=== PATIENT | female | born 1945 | race Caucasian/White ===

== ENCOUNTER 2016-08-29 14:03 | Outpatient (CLI) | payer MEDICARE, OTHER ==
[2016-08-29 14:47] LABS: CREATININE 0.7 mg/dL (0.4-1.0)
[2016-08-29] MEDS ORDERED: IOPAMIDOL-300 50 ML VIAL PO ONE (16:31)
[2016-08-29] MEDS ORDERED: IOPAMIDOL-300 100 ML VIAL IVP ONE (16:31)
--- NOTE | 2016-09-01 07:23 | CT Report ---
EXAM: CT ABDOMEN AND PELVIS EXAM DATE: 08/29/2016 04:33 PM. CLINICAL HISTORY: Pulmonary lesion, history of gist tumor. COMPARISONS: 02/21/2016. TECHNIQUE: Routine helical CT imaging was performed through the abdomen and pelvis. IV contrast: Isov ue 300 100mL. Enteric contrast: Yes. Reconstructions: Coronal and sagittal. In accordance with CT protocol optimization, one or more of the following dose reduction techniques w ere utilized for this exam: automated exposure control, adjustment of mA and/or KV based on patient s ize, or use of iterative reconstructive technique. FINDINGS: Lung Bases: A tiny 1 x 4 mm linear scarlike density present about the lateral left base on image 8 an d is not significant changed. Fine linear scars present about the posterior lower lobes. Liver: Normal. No masses. Gallbladder/Bile Ducts: Within normal limits. Spleen: Normal in size. A splenule again noted. Pancreas: Normal. Adrenal Glands: Normal. Kidneys: Normal. No masses or hydronephrosis. Peritoneal Cavity/Bowel: Surgical material now present in the region of prior tumor mass about the an terior gastric fundal wall. No residual or recurrent tumor mass identified. The remainder of the kimber l loops are unremarkable. No free fluid, free air or inflammatory process is identified. Note that th e cecum extends into the left mid abdomen as before. Pelvic Organs: Normal. The bladder and visualized pelvic organs are within normal limits. Vasculature: No aneurysms or other significant abnormality. Bones: No significant abnormality. Other: None. IMPRESSION: 1. Small linear density lateral left base unchanged and may represent a small scar. It would be atypi coral in contour for a metastatic focus. 2. Gastric tumor mass no longer identified. No residual recurrent lesion identified. [facility] Referring Provider Line: [phone] SITE ID: [id number]
--- NOTE | 2016-09-01 16:10 | CT Report ---
EXAM: CT CHEST EXAM DATE: 08/29/2016 04:33 PM. CLINICAL HISTORY: PULMONARY LESION HX OF GIST TUMOR. COMPARISONS: CT abdomen/pelvis 08/29/2016, chest film 02/20/16. TECHNIQUE: Routine helical CT imaging was performed through the chest. IV contrast: None. Reconstructions: Coron al and sagittal. In accordance with CT protocol optimization, one or more of the following dose reduction techniques w ere utilized for this exam: automated exposure control, adjustment of mA and/or KV based on patient s ize, or use of iterative reconstructive technique. FINDINGS: Lungs/Pleura: Left lower lobe 1-2 mm nodule (3/47). No other nodules identified. No effusions. Mediastinum: Normal. No adenopathy or masses. The heart and great vessels are normal. Bones: Unremarkable. Visualized Abdomen: Postoperative changes in the stomach. Other: None. IMPRESSION: Left lower lobe 1-2 mm nodule. [facility] Referring Provider Line: [phone] SITE ID: [id number]
== END 2016-08-29 14:04 | disposition home or self-care (01) ==
LOC: LAB 14:03
PROVIDERS: ATTEND Surgery
DX: J98.4 Other disorders of lung (principal); R91.1 Solitary pulmonary nodule
CPT/HCPCS: 36415; 71260; 74177; 82565; Q9967

== ENCOUNTER 2016-11-21 13:29 | Outpatient (CLI) | payer MEDICARE, OTHER | END 2016-11-21 13:30 | disposition home or self-care (01) | DX: Z12.31 Encounter for screening mammogram for malignant neoplasm of breast (principal) ==

== ENCOUNTER 2017-01-14 09:29 | Outpatient (CLI) | payer MEDICARE, OTHER ==
[2017-01-14 18:24] LABS: BASOPHILS % (AUTO) 1.2 %; EOSINOPHILS # (AUTO) 0.2 10^3/uL (0.0-0.7); EOSINOPHILS % (AUTO) 5.6 %; HCT - HEMATOCRIT 41.1 % (37.0-47.0); HGB - HEMOGLOBIN 13.6 g/dL (12.0-16.0); LYMPHOCYTES # (AUTO) 1.5 10^3/uL (1.5-3.5); MEAN CORPUSCULAR HEMOGLOBIN 30.1 pg (27.0-31.0); MEAN CORPUSCULAR HGB CONC 33.2 g/dL (32.0-36.0); MEAN CORPUSCULAR VOLUME 90.8 fL (81.0-99.0); MEAN PLATELET VOLUME 9.5 fL (7.9-10.8); MONOCYTES # (AUTO) 0.4 10^3/uL (0.0-1.0); MONOCYTES % (AUTO) 9.4 %; NEUTROPHILS # (AUTO) 1.8 10^3/uL (1.5-6.6); NEUTROPHILS % (AUTO) 45.8 %; NUCLEATED RED BLOOD CELLS AUTO 0.2 /100WBC; RED BLOOD COUNT 4.52 10^6/uL (4.20-5.40); RED CELL DISTRIBUTION WIDTH 13.6 % (12.0-15.0)
[2017-01-14 18:46] LABS: ALBUMIN/GLOBULIN RATIO 1.4 (1.0-2.2); BILIRUBIN,TOTAL 0.7 mg/dL (0.2-1.0); BUN - BLOOD UREA NITROGEN 17 mg/dL (6-20); CALCIUM 8.9 mg/dL (8.5-10.3); CARBON DIOXIDE - CO2 29 mmol/L (21-32); CHLORIDE 106 mmol/L (101-111); CHOL/HDL RATIO 2.8 (<4.4); CHOLESTEROL 184 mg/dL; CREATININE 0.7 mg/dL (0.4-1.0); GFR - MDRD 82 (>89); GLUCOSE 73 mg/dL (70-100); HDL CHOLESTEROL 66 mg/dL; LDL/HDL RATIO 1.6 (<4.4); POTASSIUM 3.9 mmol/L (3.5-5.0); SODIUM 140 mmol/L (135-145); TOTAL PROTEIN 6.7 g/dL (6.7-8.2); TRIGLYCERIDES 57 mg/dL; VLDL CHOLESTEROL 11 mg/dL
== END 2017-01-14 09:30 | disposition home or self-care (01) ==
LOC: LAB.F 09:29
PROVIDERS: ATTEND Internal Medicine
DX: E78.2 Mixed hyperlipidemia (principal)
CPT/HCPCS: 36415; 80053; 80061; 84443; 85025

== ENCOUNTER 2017-02-27 10:25 | Outpatient (CLI) | payer MEDICARE, OTHER ==
[2017-02-27 11:02] LABS: CREATININE 0.6 mg/dL (0.4-1.0)
[2017-02-27] MEDS ORDERED: IOPAMIDOL-300 50 ML VIAL PO ONE (13:45)
[2017-02-27] MEDS ORDERED: IOPAMIDOL-300 100 ML VIAL IVP ONE (13:45)
--- NOTE | 2017-02-27 16:19 | CT Report ---
CT OF THE ABDOMEN AND PELVIS WITH CONTRAST: 02/27/2017 CLINICAL INDICATION: History of GI stromal tumor. COMPARISON: 08/29/2016. TECHNIQUE: Axial CT images of the abdomen and pelvis were obtained with 100 mL of Isovue-300 intraven ously as well as oral contrast. FINDINGS: Limited evaluation of the lung bases demonstrates minimal scarring, stable. ABDOMEN: The liver, right kidney, pancreas and adrenal glands appear unremarkable. A tiny cyst in the upper pole of the left kidney is stable. A splenule in the splenic hilum is stable. Postoperative ch anges in the stomach are stable. The gallbladder is not dilated. No bowel dilatation, free gas, or fr ee fluid is present. No abdominal adenopathy is seen. PELVIS: The pelvic organs appear unremarkable. There is some laxity of the pelvic floor on the right side, best appreciated on the coronal reconstructions, without mary hernia formation. No pelvic chinyere opathy or free fluid is present. The osseous structures demonstrate degenerative changes. IMPRESSION: POSTOPERATIVE CHANGES IN THE STOMACH. NO EVIDENCE OF METASTATIC DISEASE. In accordance with CT protocol optimization, one or more of the following dose reduction techniques w ere utilized for this exam: automated exposure control, adjustment of mA and/or KV based on patient size, or use of iterative reconstructive technique. JOB #: [id number] EXT JOB #:[id number]
== END 2017-02-27 10:26 | disposition home or self-care (01) ==
LOC: LAB 10:25
PROVIDERS: ATTEND Internal Medicine
DX: Z85.09 Personal history of malignant neoplasm of other digestive organs (principal)
CPT/HCPCS: 36415; 74177; 82565; Q9967

== ENCOUNTER 2017-08-10 15:30 | Outpatient (CLI) | payer MEDICARE, OTHER | END 2017-08-10 15:31 | disposition home or self-care (01) | LOC: LAB.R 15:30 | PROVIDERS: ATTEND Internal Medicine | DX: R30.0 Dysuria (principal) | CPT/HCPCS: 87086 ==

== ENCOUNTER 2017-09-28 11:11 | Day surgery (SDC) | payer MEDICARE, OTHER ==
[2017-09-28] MEDS ORDERED: LACTATED RINGERS 1,000 ML IV ONE (11:41)
[2017-09-28] MEDS ORDERED: LIDO GARGLE 30 ML BOTTLE ONE (12:39)
[2017-09-28] MEDS ORDERED: MIDAZOLAM 2 MG/2 ML VIAL IVP ONE (13:22)
[2017-09-28] MEDS ORDERED: fentaNYL 250 MCG/5 ML VIAL IVP ONE (13:22)
[2017-09-28 14:08] VITALS: BP 114/57
== END 2017-09-28 11:12 | disposition home or self-care (01) ==
LOC: SDS 11:11
PROVIDERS: ATTEND Surgery
PROC: 0DB68ZX Excision of Stomach, Via Natural or Artificial Opening Endoscopic, Diagnostic (ICD-10-PCS; 2017-09-28)
PROC: 0DB98ZX Excision of Duodenum, Via Natural or Artificial Opening Endoscopic, Diagnostic (ICD-10-PCS; principal; 2017-09-28 12:15)
DX: K44.9 Diaphragmatic hernia without obstruction or gangrene (principal); K25.9 Gastric ulcer, unspecified as acute or chronic, without hemorrhage or perforation; K31.7 Polyp of stomach and duodenum; E78.5 Hyperlipidemia, unspecified; F32.9 Major depressive disorder, single episode, unspecified; F41.9 Anxiety disorder, unspecified; E03.9 Hypothyroidism, unspecified; Z79.82 Long term (current) use of aspirin
CPT/HCPCS: 43239; 87081; A9270; J3010; J7120

== ENCOUNTER 2018-03-02 07:05 | Outpatient (CLI) | payer MEDICARE, OTHER ==
[2018-03-02 11:02] LABS: BASOPHILS % (AUTO) 0.7 %; EOSINOPHILS # (AUTO) 0.4 10^3/uL (0.0-0.7); EOSINOPHILS % (AUTO) 5.1 %; HGB - HEMOGLOBIN 13.7 g/dL (12.0-16.0); LYMPHOCYTES # (AUTO) 1.5 10^3/uL (1.5-3.5); LYMPHOCYTES % (AUTO) 21.8 %; MEAN CORPUSCULAR HEMOGLOBIN 30.4 pg (27.0-31.0); MEAN CORPUSCULAR HGB CONC 33.8 g/dL (32.0-36.0); MEAN PLATELET VOLUME 9.4 fL (7.9-10.8); MONOCYTES # (AUTO) 0.6 10^3/uL (0.0-1.0); MONOCYTES % (AUTO) 8.5 %; NEUTROPHILS # (AUTO) 4.5 10^3/uL (1.5-6.6); NEUTROPHILS % (AUTO) 63.9 %; PLT - PLATELET COUNT 204 10^3/uL (130-450); RED CELL DISTRIBUTION WIDTH 13.5 % (12.0-15.0)
[2018-03-02 11:25] LABS: ALBUMIN/GLOBULIN RATIO 1.4 (1.0-2.2); ALKALINE PHOSPHATASE 69 IU/L (42-121); ALT ALANINE AMINOTRANSFERASE 18 IU/L (10-60); AST ASPARTATE AMINOTRANSFERASE 21 IU/L (10-42); BILIRUBIN,TOTAL 0.9 mg/dL (0.2-1.0); BUN - BLOOD UREA NITROGEN 17 mg/dL (6-20); CALCIUM 8.9 mg/dL (8.5-10.3); CARBON DIOXIDE - CO2 29 mmol/L (21-32); CHLORIDE 102 mmol/L (101-111); CHOL/HDL RATIO 2.8 (<4.4); CHOLESTEROL 184 mg/dL; CREATININE 0.7 mg/dL (0.4-1.0); GFR - MDRD 82 (>89); GLUCOSE 92 mg/dL (70-100); HDL CHOLESTEROL 65 mg/dL; LDL CHOLESTEROL,CALCULATED 103 mg/dL; LDL/HDL RATIO 1.6 (<4.4); SODIUM 139 mmol/L (135-145); TOTAL PROTEIN 6.8 g/dL (6.7-8.2); VLDL CHOLESTEROL 16 mg/dL
== END 2018-03-02 07:06 | disposition home or self-care (01) ==
LOC: LAB.F 07:05
PROVIDERS: ATTEND Internal Medicine
DX: G62.9 Polyneuropathy, unspecified (principal); E03.9 Hypothyroidism, unspecified; E78.5 Hyperlipidemia, unspecified; Z85.09 Personal history of malignant neoplasm of other digestive organs
CPT/HCPCS: 36415; 80053; 80061; 83721; 84443; 85025

== ENCOUNTER 2018-03-09 08:22 | Outpatient (CLI) | payer MEDICARE, OTHER ==
--- NOTE | 2018-03-09 11:53 | Ultrasound Report ---
Procedure Date: 03/09/2018 Accession Number: [id number] / [id number] Procedure: US - Carotid Doppler Complete CPT Code: FULL RESULT: EXAM: BILATERAL CAROTID AND VERTEBRAL ARTERY DUPLEX DOPPLER ULTRASOUND: EXAM DATE: 03/09/2018 09:25 AM CLINICAL HISTORY: TIA. Transient weakness. COMPARISON: 03/09/2018 MRI brain. TECHNIQUE: Grayscale imaging, color Doppler, and duplex spectral Doppler were used to evaluate the carotid and vertebral arteries bilaterally. Static images were obtained. FINDINGS: No significant plaque is identified in the right or left common or internal carotid arteries. Normal antegrade flow is present in bilateral vertebral arteries. VELOCITIES (cm/sec): Right CCA mid: PSV 61 cm/sec CCA dist: PSV 51 cm/sec ICA prox: PSV 59 cm/sec, EDV 16 cm/sec ICA mid: PSV 95 cm/sec, EDV 31 cm/sec ICA dist: PSV 54 cm/sec, EDV 18 cm/sec ECA: PSV 50 cm/sec Vert: PSV 43 cm/sec ICA/CCA: 1.86 Left CCA mid: PSV 67 cm/sec CCA dist: PSV 59 cm/sec ICA prox: PSV 71 cm/sec, EDV 22 cm/sec ICA mid: PSV 64 cm/sec, EDV 24 cm/sec ICA dist: PSV 65 cm/sec, EDV 22 cm/sec ECA: PSV 74 cm/sec Vert: PSV 41 cm/sec ICA/CCA: 1.20 ICA diameter stenosis: Right: <50% by velocity and <70% by NASCET criteria. Left: <50% by velocity and <70% by NASCET criteria. IMPRESSION: 1. No significant bilateral carotid artery plaquing. 2. In the right carotid artery there are no elevated carotid artery velocities to suggest hemodynamically significant stenosis. 3. In the left carotid artery there are no elevated carotid artery velocities to suggest hemodynamically significant stenosis. 4. Normal antegrade flow is present in bilateral vertebral arteries. General Recommendations: Stenosis =50% ICA - Follow-up ultrasound 6-12 months Stenosis <50% ICA - High Risk Patient with plaque - Follow-up ultrasound 1-2 years Normal Study but High Risk Patient - Follow-up ultrasound 3-5 years Management recommendations and diagnostic criteria are based on current IAC endorsed standards in Carotid Artery Stenosis: Grayscale and Doppler Ultrasound Diagnosis. Validated velocity measurements with angiographic measurements and velocity criteria are extrapolated from diameter data as defined by the Society of Radiologists in Ultrasound Consensus Conference Radiology 2003; 229;340-346. [facility]
--- NOTE | 2018-03-09 14:19 | MRI Report ---
Procedure Date: 03/09/2018 Accession Number: [id number] / [id number] Procedure: MRI - Brain W/O CPT Code: FULL RESULT: EXAM: MRI BRAIN WITHOUT CONTRAST EXAM DATE: 03/09/2018 10:36 AM. CLINICAL HISTORY: TIA. COMPARISON: No prior MRI of the brain. TECHNIQUE: Multiplanar, multisequence T1-weighted and fluid-sensitive MR sequences of the brain were performed. Sequences optimized for routine evaluation. Other: None. IV Contrast: None. FINDINGS: Brain Volume: Normal for age. Parenchyma/Dura: No restricted diffusion to suggest acute or recent ischemic infarct. No cerebral hemorrhage, mass effect, midline shift or abnormal subdural fluid collection. Mild nonspecific multifocal cerebral white matter T2 hyperintense signal changes, likely contributed to by aging and mild multifocal chronic microangiopathy. Amorphous central pontine T2 hyperintensity is also present, also nonspecific but likely associated with chronic microangiopathy. No restricted diffusion to suggest an acute process. Ventricles/Cisterns: No hydrocephalus. No abnormal extra-axial fluid collection or hemorrhage. Orbits: Symmetric and unremarkable. Sella Turcica: The pituitary gland, cavernous sinuses, suprasellar cistern and optic chiasm are unremarkable. Vasculature: Normal signal flow void is seen in the major arterial structures at the skull base. Sinuses: No acute-appearing paranasal sinus disease. IMPRESSION: No MRI evidence for acute intracranial abnormality. Mild nonspecific white matter T2 hyperintense signal changes, likely secondary to chronic microangiopathy. [facility]
== END 2018-03-09 08:23 | disposition home or self-care (01) ==
LOC: DI 08:22
PROVIDERS: ATTEND Internal Medicine
DX: G45.9 Transient cerebral ischemic attack, unspecified (principal)
CPT/HCPCS: 36415; 70551; 80053; 80061; 83721; 84443; 85025; 93306; 93880

== ENCOUNTER 2018-05-17 15:36 | Outpatient (CLI) | payer MEDICARE, OTHER ==
--- NOTE | 2018-05-20 14:41 | Mammography Report ---
Reason: SCRENNING MAMMO Procedure Date: 05/17/2018 Accession Number: [id number] / [id number] Procedure: REGAN - Screening Mammo Dig Bilat CPT Code: FULL RESULT: EXAM: Screening Mammo Dig Bilat DATE: 05/17/2018 3:57 PM CLINICAL HISTORY: 73-year-old female with history of previous silicone breast implants which have since been removed. TECHNIQUE: Bilateral CC and MLO views were obtained. COMPARISON: 11/21/2016, 02/10/2014, 01/27/2012, 11/23/2010. FINDINGS: The breasts demonstrate scattered fibroglandular densities bilaterally. Coarse typically benign calcifications are again seen in the right breast. No suspicious masses, clustered microcalcifications, or regions of architectural distortion are identified. IMPRESSION: Benign findings RECOMMENDATION: Routine annual screening unless otherwise clinically indicated. BIRADS CATEGORY 2: Benign findings STANDARD QUALIFYING STATEMENTS: 1. This examination was not reviewed with the aid of Computer-Aided Detection (CAD). 2. A negative or benign imaging report should not delay biopsy if clinically suspicious findings are present. Consider surgical consultation if warrented. More than 5% of cancers are not identified by imaging. 3. Dense breasts may obscure an underlying neoplasm. 4. This examination was reviewed without the aid of 3D breast imaging (tomosynthesis).
== END 2018-05-17 15:37 | disposition home or self-care (01) ==
LOC: DI 15:36
DX: Z12.31 Encounter for screening mammogram for malignant neoplasm of breast (principal)
CPT/HCPCS: 77067

== ENCOUNTER 2018-06-11 12:17 | Outpatient (CLI) | payer MEDICARE, OTHER ==
[2018-06-11 12:44] LABS: CREATININE 0.9 mg/dL (0.4-1.0)
[2018-06-11] MEDS ORDERED: IOVERSOL 320 50 ML VIAL ONE (13:04)
[2018-06-11] MEDS ORDERED: IOVERSOL 320 100 ML VIAL IVP ONE ×2 (13:05→14:36)
--- NOTE | 2018-06-11 15:16 | CT Report ---
Reason: GIST TUMOR HISTORY Procedure Date: 06/11/2018 Accession Number: [id number] / [id number] Procedure: CT - Abdomen/Pelvis W/ CPT Code: FULL RESULT: EXAM: CT ABDOMEN AND PELVIS EXAM DATE: 06/11/2018 02:31 PM. CLINICAL HISTORY: GIST tumor history. COMPARISONS: Abdomen/pelvis w/contrast 02/27/2017 1:01 PM. TECHNIQUE: Routine helical CT imaging was performed through the abdomen and pelvis. IV contrast: Isovue 300, 100mL. Enteric contrast: No. Reconstructions: Coronal and sagittal. In accordance with CT protocol optimization, one or more of the following dose reduction techniques were utilized for this exam: automated exposure control, adjustment of mA and/or KV based on patient size, or use of iterative reconstructive technique. FINDINGS: Lung Bases: Unremarkable. Liver: Normal. No masses. Gallbladder/Bile Ducts: Unremarkable. Spleen: Normal. Pancreas: Normal. Adrenal Glands: Normal. Kidneys: Left renal hypodensity which is too small to characterize. No masses or hydronephrosis. Peritoneal Cavity/Bowel: Postoperative changes involving the stomach are stable. Diverticulosis without diverticulitis. No free fluid, free air or adenopathy. No masses or acute inflammatory process. Pelvic Organs: Normal. The bladder and visualized pelvic organs are within normal limits. Vasculature: No aneurysms or other significant abnormality. Bones: No significant abnormality. Other: Small sliding hiatal hernia. IMPRESSION: No evidence of recurrent or metastatic disease. [facility]
== END 2018-06-11 12:18 | disposition home or self-care (01) ==
LOC: LAB 12:17 → DI 12:18
PROVIDERS: ATTEND Surgery
DX: D48.1 Neoplasm of uncertain behavior of connective and other soft tissue (principal)
CPT/HCPCS: 36415; 74177; 82565; Q9967

== ENCOUNTER 2018-07-14 08:00 | Outpatient (CLI) | payer MEDICARE, OTHER | END 2018-07-14 23:59 | disposition home or self-care (01) | LOC: LAB.R 08:00 | PROVIDERS: ATTEND Internal Medicine | DX: N30.00 Acute cystitis without hematuria (principal) | CPT/HCPCS: 87086 ==

== ENCOUNTER 2018-09-25 14:31 | Emergency (ER) | payer MEDICARE, OTHER ==
[2018-09-25 14:37] VITALS: BP 164/90
[2018-09-25] MEDS ORDERED: BUFFERED LIDOCAINE 10 ML SYRINGE SUBQ STA (15:48)
--- NOTE | 2018-09-25 15:50 | ED Physician Documentation ---
PD HPI UPPER EXT INJURY - Stated complaint Stated Complaint: LEFT MIDDLE FINGER CUT - Chief complaint Chief Complaint: Laceration - History of Present Illness Location: Left, Finger (middle) Type of injury: Laceration Where injury occurred: Home Timing - onset: Yesterday Timing - duration: Days (1) Timing - details: Abrupt onset, Still present Improved by: Rest, Immobilization Worsened by: Moving, Palpating Associated symptoms: No: Weakness, Numbness, Tingling Similar symptoms before: Has not had sx before Recently seen: Not recently seen - Additonal information Additional information: 73-year-old female cut her left middle finger with a kitchen knife yesterday afternoon and she was initially able to control the bleeding with glue and this is come office when she washed her hand. She is having continued problems with bleeding. Review of Systems Constitutional: denies: Fever Respiratory: denies: Cough GI: denies: Vomiting PD PAST MEDICAL HISTORY - Past Medical History Cardiovascular: High cholesterol Respiratory: None Endocrine/Autoimmune: HyPOthyroidism GI: Pancreatitis, Diverticulitis : None HEENT: None Psych: Depression Musculoskeletal: Osteoarthritis Derm: None - Past Surgical History General: Colonoscopy Ortho: Other /[employer]: Dilation and currettage, Hysterectomy, Oophrectomy, Breast implants, Other Neuro: Other - Present Medications Home Medications: Ambulatory Orders Medication Instructions Recorded Confirmed ALPRAZolam [Xanax] 0.5 mg PO QPM 02/20/16 09/28/17 Estropipate 0.375 mg PO QDBREAKFAST 02/20/16 09/28/17 Levothyroxine [Synthroid] 50 mcg PO DAILY 02/20/16 09/28/17 Lovastatin 10 mg PO QPM 02/20/16 09/28/17 Nortriptyline [Pamelor] 20 mg PO QPM 02/20/16 09/25/17 Biotin 5,000 mcg PO DAILY 03/04/16 09/28/17 Cholecalciferol [Vitamin D3] 5,000 unit PO DAILY 03/04/16 09/28/17 Multivitamin [Theragran] 1 tab PO DAILY 03/04/16 09/28/17 Vitamin B Complex/Folic Acid 0.4 mg PO DAILY 03/04/16 09/28/17 [Vitamin B-100 Complex Tablet] buPROPion HCl [Bupropion HCl Sr] 150 mg PO DAILY 03/05/16 09/28/17 Aspirin [Aspirin EC] 81 mg PO QPM 09/25/17 09/28/17 Fluticasone [Flonase] 1 sprays IDALIA DAILY 09/25/17 09/25/17 Lutein/Zeaxanthin [Ocuvite Lutein 1 each PO DAILY 09/25/17 09/28/17 25-5 mg Softgel] - Allergies Allergies/Adverse Reactions: Allergies Allergy/AdvReac Type Severity Reaction Status Date / Time morphine AdvReac Severe Emesis Verified 03/04/16 11:08 acetaminophen [From Lortab] AdvReac Headache Verified 03/06/16 00:02 codeine AdvReac Rash Verified 03/04/16 11:08 hydrocodone bitartrate * AdvReac Headache Verified 03/06/16 00:02 [From Lortab] Penicillins AdvReac Rash Verified 03/04/16 11:08 Sulfa (Sulfonamide AdvReac Unknown Verified 03/04/16 11:08 Antibiotics) - Social History Does the pt smoke?: No Smoking Status: Never smoker Does the pt drink ETOH?: No Does the pt have substance abuse?: No - Immunizations Immunizations are current?: Yes PD ED PE NORMAL - Vitals Vital signs reviewed: Yes (hypertensive ) - General General: Alert and oriented X 3, No acute distress, Well developed/nourished - HEENT HEENT: Atraumatic, PERRL, EOMI - Respiratory Respiratory: No respiratory distress - Back Back: No CVA TTP, No spinal TTP - Derm Derm: Normal color, Warm and dry, No rash - Extremities Extremities: No deformity, No edema, Other (over the cuticle of the left middle finger there is a 1cm laceration that freely bleeds with cleaning ) - Psych Psych: Normal mood, Normal affect Results - Vitals Vitals: Vital Signs - 24 hr 09/25/18 14:36 Temperature 36.6 C Heart Rate 88 Respiratory 18 Rate Blood Pressure 164/90 H O2 Saturation 93 Oxygen O2 Source Room air Procedures - Laceration (location) left middle Length in cm: 1.5 Wound type: Curved, Flap Neurovascular status: Sensory intact, Motor intact, Vascular intact Anesthesia: Lidocaine 1%, With bicarb Wound Preparation: Hibiclens, Irrigated copiously NS, Wound explored, To the base Skin layer closure: Nylon, Interrupted, Size #-0 - enter number (6-0), Sutures - enter # (3) Other: Patient tolerated well, No complications, Neurovascular intact, Dressing applied, Tetanus UTD Complexity: Simple PD MEDICAL DECISION MAKING - ED course Complexity details: considered differential, d/w patient ED course: 73-year-old female with a laceration to the cuticle on the left middle finger has had some trouble controlling her bleeding and this is fixed with suturing. Departure - Departure Disposition: 01 Home, Self Care Clinical Impression: Finger laceration Qualifiers: Encounter type: initial encounter Finger: middle finger Damage to nail status: without damage Foreign body presence: without foreign body Laterality: left Qualified Code(s): S61.213A - Laceration without foreign body of left middle finger without damage to nail, initial encounter Condition: Stable Instructions: ED Laceration Hand Follow-Up: Titus Pizarro MD [Primary Care Provider] - Comments: sutures will need to be removed in 7-10 days
== END 2018-09-25 16:19 | disposition home or self-care (01) ==
LOC: ED 14:31
DX: S61.213A Laceration without foreign body of left middle finger without damage to nail, initial encounter (principal); W26.0XXA Contact with knife, initial encounter; Y92.009 Unspecified place in unspecified non-institutional (private) residence as the place of occurrence of the external cause; Z79.82 Long term (current) use of aspirin
CPT/HCPCS: 12001; 99282; 99283

== ENCOUNTER 2018-11-16 09:44 | Day surgery (SDC) | payer MEDICARE, OTHER ==
[2018-11-16] MEDS ORDERED: LIDO GARGLE 30 ML BOTTLE ONE (09:51)
[2018-11-16] MEDS ORDERED: LACTATED RINGERS 1,000 ML IV ONE (10:14)
[2018-11-16] MEDS ORDERED: fentaNYL 100 MCG/2 ML VIAL IVP ONE (11:09)
[2018-11-16] MEDS ORDERED: MIDAZOLAM 2 MG/2 ML VIAL IVP ONE (11:09)
[2018-11-16] MEDS ORDERED: BENZOCAINE/TETRACAINE/BUTAMBEN 20 GM TOP ONE (11:23)
[2018-11-16] MEDS ORDERED: LIDO GARGLE 30 ML BOTTLE PO ONE (11:23)
[2018-11-16 12:18] VITALS: BP 120/70
== END 2018-11-16 09:45 | disposition home or self-care (01) ==
LOC: SDS 09:44
PROVIDERS: ATTEND Surgery
PROC: 0DB78ZX Excision of Stomach, Pylorus, Via Natural or Artificial Opening Endoscopic, Diagnostic (ICD-10-PCS; 2018-11-16)
PROC: 0DB58ZX Excision of Esophagus, Via Natural or Artificial Opening Endoscopic, Diagnostic (ICD-10-PCS; 2018-11-16)
PROC: 0DB98ZX Excision of Duodenum, Via Natural or Artificial Opening Endoscopic, Diagnostic (ICD-10-PCS; principal; 2018-11-16 11:00)
DX: Z09 Encounter for follow-up examination after completed treatment for conditions other than malignant neoplasm (principal); K21.9 Gastro-esophageal reflux disease without esophagitis; Z87.19 Personal history of other diseases of the digestive system; K20.9 Esophagitis, unspecified; K25.9 Gastric ulcer, unspecified as acute or chronic, without hemorrhage or perforation
CPT/HCPCS: 43239; 87081; A9270; J7120

== ENCOUNTER 2019-09-06 14:34 | Outpatient (CLI) | payer MEDICARE, OTHER ==
[2019-09-06 15:34] LABS: BASOPHILS # (AUTO) 0.1 10^3/uL (0.0-0.1); BASOPHILS % (AUTO) 0.8 %; EOSINOPHILS # (AUTO) 0.2 10^3/uL (0.0-0.7); EOSINOPHILS % (AUTO) 3.2 %; HGB - HEMOGLOBIN 13.4 g/dL (12.0-16.0); LYMPHOCYTES # (AUTO) 1.7 10^3/uL (1.5-3.5); LYMPHOCYTES % (AUTO) 28.3 %; MEAN CORPUSCULAR HGB CONC 33.1 g/dL (32.0-36.0); MEAN CORPUSCULAR VOLUME 90.8 fL (81.0-99.0); MEAN PLATELET VOLUME 10.1 fL (7.9-10.8); MONOCYTES # (AUTO) 0.4 10^3/uL (0.0-1.0); MONOCYTES % (AUTO) 7.4 %; NEUTROPHILS # (AUTO) 3.6 10^3/uL (1.5-6.6); PLT - PLATELET COUNT 230 10^3/uL (130-450); RED BLOOD COUNT 4.46 10^6/uL (4.20-5.40); WHITE BLOOD COUNT 5.9 x10^3/uL (4.8-10.8)
[2019-09-06 15:49] LABS: ALBUMIN 4.2 g/dL (3.2-5.5); ALBUMIN/GLOBULIN RATIO 1.6 (1.0-2.2); BILIRUBIN,TOTAL 0.5 mg/dL (0.2-1.0); CALCIUM 9.1 mg/dL (8.5-10.3); CREATININE 0.6 mg/dL (0.4-1.0); TOTAL PROTEIN 6.8 g/dL (6.7-8.2)
[2019-09-06 16:41] LABS: THYROID STIMULATING HORMONE 1.99 uIU/mL (0.34-5.60)
[2019-09-06 16:43] LABS: FREE T4 (FREE THYROXINE) 1.51 ng/dL (0.58-1.64)
== END 2019-09-06 14:35 | disposition home or self-care (01) ==
LOC: LAB 14:34
PROVIDERS: ATTEND Family Medicine
DX: L65.9 Nonscarring hair loss, unspecified (principal); K21.9 Gastro-esophageal reflux disease without esophagitis; E03.9 Hypothyroidism, unspecified; E78.5 Hyperlipidemia, unspecified; E55.9 Vitamin D deficiency, unspecified; R20.9 Unspecified disturbances of skin sensation; F41.9 Anxiety disorder, unspecified
CPT/HCPCS: 36415; 80053; 84439; 84443; 84481; 85025

== ENCOUNTER 2019-12-30 09:03 | Outpatient (CLI) | payer MEDICARE, OTHER ==
--- NOTE | 2019-12-30 14:28 | XRAY Report ---
Reason: FB IN LEFT ELBOW Procedure Date: 12/30/2019 Accession Number: [id number] / [id number] Procedure: WCP - Elbow 2 View LT CPT Code: Final Report FULL RESULT: PROCEDURE: Elbow 2 View LT INDICATIONS: FB IN LEFT ELBOW TECHNIQUE: 2 views of the elbow were acquired. COMPARISON: None. FINDINGS: Bones: No fractures or dislocations. No suspicious bony lesions. Soft tissues: No elbow joint effusion. There are multiple small calcifications within the soft tissues lateral to the radial head, likely along the course of the common extensor tendon. IMPRESSION: 1. Multiple small calcifications in the medial soft tissues along the course of the common extensor tendor proximally. Findings may represent calcific tendinitis or possible foreign bodies if there has been prior history of trauma. Reviewed by: John Stahl MD on 12/30/2019 2:27 PM PDT Approved by: John Stahl MD on 12/30/2019 2:27 PM PDT Station ID: [id number]
== END 2019-12-30 23:59 | disposition home or self-care (01) ==
LOC: DI.WCP 09:03
PROVIDERS: ATTEND Orthopaedic Surgery
DX: R93.6 Abnormal findings on diagnostic imaging of limbs (principal)

== ENCOUNTER 2020-03-07 08:00 | Outpatient (CLI) | payer MEDICARE, OTHER ==
--- NOTE | 2020-03-07 12:32 | XRAY Report ---
PROCEDURE: Chest 2 View X-Ray INDICATIONS: INHALATION INJURY TECHNIQUE: 2 view(s) of the chest. COMPARISON: Chest CT 08/29/2016.. FINDINGS: Surgical changes and devices: None. Lungs and pleura: No pleural effusions or pneumothorax. Lungs are clear. Mediastinum: Mediastinal contours are normal. Heart size is normal. Bones and chest wall: No suspicious bony abnormalities. Soft tissues appear unremarkable. IMPRESSION: No pulmonary edema found. Lung volumes are relatively large but this may simply reflect an aggressive inspiratory effort. No sign of pneumonia or pneumonitis. Reviewed by: Marcelo Osborn MD on 03/07/2020 12:31 PM PDT Approved by: Marcelo Osborn MD on 03/07/2020 12:31 PM PDT Station ID: [id number]
== END 2020-03-07 23:59 | disposition home or self-care (01) ==
LOC: DI.S 08:00
PROVIDERS: ATTEND Physician Assistant
DX: J68.9 Unspecified respiratory condition due to chemicals, gases, fumes and vapors (principal)
CPT/HCPCS: 71046

== ENCOUNTER 2020-07-02 13:30 | Outpatient (CLI) | payer MEDICARE, OTHER | END 2020-07-02 13:31 | disposition home or self-care (01) | LOC: COV 13:30 | PROVIDERS: ATTEND Family Medicine | DX: R05 Cough (principal); Z20.828 Contact with and (suspected) exposure to other viral communicable diseases ==

== ENCOUNTER 2020-07-18 16:29 | Outpatient (CLI) | payer MEDICARE, OTHER | END 2020-07-18 16:30 | disposition home or self-care (01) | LOC: COV 16:29 | PROVIDERS: ATTEND Surgery | DX: Z01.812 Encounter for preprocedural laboratory examination (principal); Z86.018 Personal history of other benign neoplasm; Z20.828 Contact with and (suspected) exposure to other viral communicable diseases ==

== ENCOUNTER 2020-07-25 06:43 | Day surgery (SDC) | payer MEDICARE, OTHER ==
[2020-07-25] MEDS: LIDO GARGLE 30 ML BOTTLE ONE ×2 (07:10→07:28)
[2020-07-25] MEDS ORDERED: BENZOCAINE/TETRACAINE/BUTAMBEN 20 GM TOP ONE ×2 (07:11→07:28)
[2020-07-25] MEDS ORDERED: LACTATED RINGERS 1,000 ML IV ONE ×2 (07:17→07:47)
[2020-07-25] MEDS ORDERED: fentaNYL 100 MCG/2 ML VIAL ONE (07:33)
[2020-07-25] MEDS ORDERED: MIDAZOLAM 2 MG/2 ML VIAL ONE (07:33)
[2020-07-25 08:14] VITALS: BP 109/59
--- OUTSIDE RECORDS SUMMARY | 2020-08-01 00:30 | EXTERNAL MEDICAL SUMMARY RPT | Continuity of Care Document ---
:1945 Demographics Phone Unavailable Preferred Language Bulgarian Marital Status Unknown Denominational Affiliation Unknown Race Unknown Ethnic Group Unknown Author Organization [place] Address [address] [phone] Phone Care Team Providers Name Role Phone Demmler Unavailable Unavailable MD Unavailable Unavailable Roof Unavailable Unavailable Problems date description facility 2013-05-06 08:00 HYPOTHYROIDISM NOS [facility] 2013-05-06 08:00 HYPERLIPIDEMIA NEC/NOS [facility] 2013-05-06 08:00 IDIO PERIPH NEURPTHY [facility] 2013-05-06 08:00 OTH MED,LT,CURRENT USE [facility] 2013-10-07 09:16 HYPERLIPIDEMIA NEC/NOS [facility] 2013-10-07 09:16 OTH MED,LT,CURRENT USE [facility] 2014-02-10 15:00 [facility] 2014-02-10 15:00 SCRN MAMMO-HIGH RISK PT, [facility] MALIGNANT NEOPLASM OF BREAST 2014-06-05 07:04 HYPOTHYROIDISM NOS [facility] 2014-06-05 07:04 HYPERLIPIDEMIA NEC/NOS [facility] 2014-06-05 07:04 OTH MED,LT,CURRENT USE [facility] 2015-08-03 07:16 HYPOTHYROIDISM, [facility]NSPECIFIED [facility] 2015-08-03 07:16 HYPERLIPIDEMIA, UNSPECIFIED [facility] 2015-08-03 07:16 OTHER HALFWAY (CURRENT) DRUG [facility] THERAPY 2016-02-20 17:24 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 2016-02-20 17:24 ACUTE POSTHEMORRHAGIC ANEMIA [facility] 2016-02-20 17:24 HYPOTHYROIDISM, [facility]PECIFIED [facility] 2016-02-20 17:24 HYPERLIPIDEMIA, [facility]NSPECIFIED [facility] 2016-02-20 17:24 GASTROINTESTINAL HEMORRHAGE, [facility] UNSPECIFIED 2016-02-20 17:24 SOLITARY PULMONARY NODULE [facility] 2016-02-20 17:24 DO NOT RESUSCITATE [facility] 2016-02-27 10:24 GASTROINTESTINAL HEMORRHAGE, [facility] UNSPECIFIED 2016-02-28 07:28 GASTROINTESTINAL HEMORRHAGE, [facility] UNSPECIFIED 2016-03-04 10:31 BENIGN NEOPLASM OF STOMACH [facility] 2016-03-04 10:31 ACUTE POSTHEMORRHAGIC ANEMIA [facility] 2016-03-04 10:31 ANEMIA, UNSPECIFIED [facility] 2016-03-04 10:31 HYPOTHYROIDISM, UNSPECIFIED [facility] 2016-03-04 10:31 HYPERLIPIDEMIA, UNSPECIFIED [facility] 2016-03-04 10:31 MAJOR DEPRESSIVE DISORDER, [facility] SINGLE EPISODE, UNSPECIFIED 2016-03-04 10:31 ANXIETY DISORDER, UNSPECIFIED [facility] 2016-03-04 10:31 INSOMNIA, UNSPECIFIED [facility] 2016-04-08 15:50 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) 2016-04-08 15:50 GASTROINTESTINAL HEMORRHAGE, [facility] UNSPECIFIED 2016-08-29 14:03 OTHER DISORDERS OF LUNG [facility] 2016-08-29 14:03 SOLITARY PULMONARY NODULE [facility] 2016-11-21 13:29 ENCNTR SCREEN MAMMOGRAM FOR [facility] MALIGNANT NEOPLASM OF BREAST 2017-01-14 09:29 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[facility]LIPIDEMIA [facility] 2017-02-27 10:25 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 2017-08-10 15:30 DYSURIA [facility] 2017-09-28 11:11 HYPOTHYROIDISM, [facility]PECIF[facility] 2017-09-28 11:11 HYPERLIPIDEMIA, UNSPECIFIED [facility] 2017-09-28 11:11 MAJOR DEPRESSIVE DISORDER, [facility] SINGLE EPISODE, UNSPECIFIED 2017-09-28 11:11 ANXIETY DISORDER, UNSPECIFIED [facility] 2017-09-28 11:11 GASTRIC ULCER, [facility] ACUTE OR [facility]erged [facility] CHRONIC, W/O HEMOR OR PERF 2017-09-28 11:11 POLYP OF STOMACH AND DUODENUM [facility] 2017-09-28 11:11 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 2017-09-28 11:11 HALFWAY (CURRENT) USE OF [facility] ASPIRIN 2018-03-02 07:05 HYPOTHYROIDISM, UNSPECIFIED [facility] 2018-03-02 07:05 HYPERLIPIDEMIA, UNSPECIFIED [facility] 2018-03-02 07:05 POLYNEUROPATHY, UNSPECIFIED [facility] 2018-03-02 07:05 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 2018-03-09 08:22 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, UNSPECIFIED 2018-05-17 15:36 ENCNTR SCREEN MAMMOGRAM FOR [facility] MALIGNANT NEOPLASM OF BREAST 2018-06-11 12:17 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 2018-07-14 08:00 ACUTE CYSTITIS WITHOUT HEMATURIA [facility] 2018-09-25 14:31 LACERATION W/O FB OF L MID [facility] FINGER W/O DAMAGE TO NAIL, INIT 2018-09-25 14:31 CONTACT WITH KNIFE, INITIAL [facility] ENCOUNTER 2018-09-25 14:[address] IN [facility] NON-INSTITUT Merged with [facility] (PRIVATE) RESIDENCE PLACE 2018-09-25 14:31 LAP LAYER (CURRENT) USE OF [facility] ASPIRIN 2018-11-16 09:44 ESOPHAGITIS, UNSPECIFIED [facility] 2018-11-16 09:44 GASTRO-ESOPHAGEAL REFLUX DISEASE [facility] WITHOUT ESOPHAGITIS 2018-11-16 09:44 GASTRIC ULCER, UNSP ACUTE OR [facility] CHRONIC, W/O HEMOR OR PERF 2018-11-16 09:44 ENCNTR FOR F/U EXAM AFT TRTMT [facility] FOR COND OTH THAN STEWART GARCIA 2018-11-16 09:44 PERSONAL HISTORY OF OTHER [facility] DISEASES OF THE DIGESTIVE SYSTEM 2019-09-06 14:34 HYPOTHYROIDISM, UNSPECIFIED [facility] 2019-09-06 14:34 VITAMIN D DEFICIENCY, [facility] dical [place] UNSPECIFIED 2019-09-06 14:34 HYPERLIPIDEMIA, UNSPECIFIED [facility] 2019-09-06 14:34 ANXIETY DISORDER, UNSPECIFIED [facility] 2019-09-06 14:34 GASTRO-ESOPHAGEAL REFLUX DISEASE [facility] WITHOUT ESOPHAGITIS 2019-09-06 14:34 NONSCARRING HAIR LOSS, [facility] [place] UNSPECIFIED 2019-09-06 14:34 UNSPECIFIED DISTURBANCES OF SKIN [facility] SENSATION 2019-12-30 09:03 ABNORMAL FINDINGS ON DIAGNOSTIC [facility] IMAGING OF LIMBS 2020-03-07 08:00 UNSP RESP COND DUE TO CHEMICALS, [facility] GASES, FUMES AND VAPORS 2020-07-16 00:00:00 Health-related behavior [facility] 2020-07-16 00:00:00 Tobacco use and exposure [facility] 2020-07-16 00:00:00 Exercise formerly [facility] 2020-07-16 00:00:00 [facility] 2020-07-16 00:00:[address] [facility] 2020-07-16 00:00:00 Tobacco smoking status NHIS [facility] [place] [facility] 2020-07-16 00:00:00 Total score? [facility] 2020-07-18 16:29 [facility] 2020-07-18 16:29 CONTACT W AND EXPOSURE TO OTH [facility] VIRAL COMMUNICABLE DISEASES 2020-07-18 16:29 PERSONAL HISTORY OF OTHER BENIGN [facility] NEOPLASM Allergies date description facility sulfa drugs [facility] BEE VENOM [facility] BENZONATATE [facility] OXYCODONE [facility] OXYCODONE-ACETAMINOPHEN [facility] NO KNOWN ALLERGIES [facility] ONION [facility] sulfa drugs [facility] CODEINE [facility] ERYTHROMYCIN [facility] GABAPENTIN [facility] MONTELUKAST [facility] OXYCODONE [facility] TRAMADOL [facility] HYDROCODONE-ACETAMINOPHEN [facility] NO KNOWN ENVIRONMENTAL ALLERGIES [facility] PENICILLINS [facility] SULFA ANTIBIOTICS [facility] EXENATIDE MICROSPHERES [facility] [place] PRAVASTATIN SODIUM [facility] [id number] REDUCTASE INHIBITORS [facility] NO KNOWN ALLERGIES [facility] FISH CONTAINING PRODUCTS [facility] VANCOMYCIN ANALOGUES [facility] ERYTHROPOIETIN ANALOGUES [facility] NO KNOWN ALLERGIES [facility] ACETAMINOPHEN [facility] AMPICILLIN [facility] CEPHALEXIN [facility] DAPTOMYCIN [facility] VANCOMYCIN [facility] ERYTHROMYCIN [facility] hydrocodone bitartrate * [facility] Penicillins [facility] Sulfa (Sulfonamide Antibiotics) [facility] [place] morphine [facility] code[facility] acetaminophen [facility] ADHESIVE \T\ TAPE [facility] CODEINE SULFATE [facility] CODE[facility] DOXYCYCLINE [facility] HEPARIN [facility] HYDROCODONE [facility] MAGNESIUM CITRATE [facility] MAGNESIUM HYDROXIDE [facility] PHENYTOIN [facility] VALPROIC ACID [facility] AMOXICILLIN-POT CLAVULANATE [facility] IODINATED DIAGNOSTIC AGENTS [facility] NO KNOWN ENVIRONMENTAL ALLERGIES [facility] SULFA ANTIBIOTICS [facility] EXENATIDE MICROSPHERES [facility] [place] PRAVASTATIN SODIUM [facility] [id number] REDUCTASE INHIBITORS [facility] NO ALLERGY INFORMATION AVAILABLE [facility] VANCOMYCIN ANALOGUES [facility] ERYTHROPOIETIN ANALOGUES [facility] NO KNOWN ALLERGIES [facility] IODINE [facility] CODEINE [facility] ACETAMINOPHEN [facility] CEPHALEXIN [facility] DAPTOMYCIN [facility] VANCOMYCIN [facility] ERYTHROMYCIN [facility] hydrocodone bitartrate * [facility] Penicillins [facility] Sulfa (Sulfonamide Antibiotics) [facility] morphine [facility] codeine [facility] acetaminophen [facility] Results test status date ordered by attending specimen margy e null F 2020-07-02 LANG.99 ANÍBAL RODRIGUEZSADORUS 07-02 19:20:00 13:30:00 facility observation status value reference units lab abnor mal line notes range code [facility] F NEGATIVE unknown [facility] e[facility]ate report - Report scanned to Patient' s EMR. Testing [facility] test status date ordered by attending specimen margy e null F 2020-07-18 RUFINA.01 Wilfredo Mujica 16:34:00 16:33:00 facility observation status value reference units lab abnor mal line notes range code [facility] F NEGATIVE unknown [facility] eparate report - Report scanned to Patient' s EMR. Testing performe d at [facility] test status date ordered by attending specimen margy e T unknown 2020-07-02 unknown unknown unknown 00:00:00 COVID-19_REFEREN unknown 2020-07-02 unknown unknown unkno wn CE_TEST 00:00:00 _2018NCoV_COVID- unknown 2020-07-02 unknown unknown unkno wn 19_Lab_Test_Resul 00:00:00 t_Text_ T unknown 2020-07-18 unknown unknown unknown 00:00:00 COVID-19_REFEREN unknown 2020-07-18 unknown unknown unkno wn CE_TEST 00:00:00 _2019NCoV_COVID- unknown 2020-07-18 unknown unknown unkno wn 19_Lab_Test_Resul 00:00:00 t_Text_ facility observation status value reference units lab abnor mal line range code notes [facility] T unknown NEGATIVE unknown COVI unkn own unknown Primary [facility] D-19 [place] [facility] COVID-19_REF unknown NEGATIVE unknown COVI unknown unknown Primary Care ERENCE_TEST D19.R [place] [facility] EF [facility] _2019NCoV_CO unknown NEGATIVE unknown _665 unknown unknown Primary Care VID-19_Lab_Te [address] [place] [facility] [address]_Result_Tex t_ [facility] T unknown NEGATIVE unknown COVI unkn own unknown Primary Care D-19 [place] [facility] COVID-19_REF unknown NEGATIVE unknown COVI unknown unknown Primary Care ERENCE_TEST D19.R [place] [facility] EF [facility] _2019NCoV_CO unknown NEGATIVE unknown _665 unknown unknown Primary Care VID-19_Lab_Te [address] [place] [facility] [address]_Result_[place] t_ Social History date description facility 2020-07-16 00:00:00 Never smoker [facility] [place] [facility] Social History date description facility 2020-07-16 00:00:00 Never smoker [facility] [place] [facility] date description facility [id number]
== END 2020-07-25 06:44 | disposition home or self-care (01) ==
LOC: SDS 06:43
PROVIDERS: ATTEND Surgery
PROC: 0DB48ZX Excision of Esophagogastric Junction, Via Natural or Artificial Opening Endoscopic, Diagnostic (ICD-10-PCS; principal; 2020-07-25 07:30)
DX: Z08 Encounter for follow-up examination after completed treatment for malignant neoplasm (principal); Z85.028 Personal history of other malignant neoplasm of stomach; K21.00 Gastro-esophageal reflux disease with esophagitis, without bleeding; E78.5 Hyperlipidemia, unspecified; F32.9 Major depressive disorder, single episode, unspecified; Z79.82 Long term (current) use of aspirin; Z79.899 Other long term (current) drug therapy
CPT/HCPCS: 43239; A9270; J7120; 88305

== ENCOUNTER 2020-08-06 17:05 | Outpatient (CLI) | payer MEDICARE, OTHER | END 2020-08-06 17:06 | disposition home or self-care (01) | LOC: COV 17:05 | PROVIDERS: ATTEND Family Medicine | DX: U07.1 COVID-19 (principal) ==

== ENCOUNTER 2021-02-12 13:34 | Outpatient (CLI) | payer MEDICARE, OTHER ==
--- NOTE | 2021-02-12 15:20 | XRAY Report ---
PROCEDURE: Foot 3 View LT INDICATIONS: GEORGE FRACTURE L FOOT TECHNIQUE: 3 views of the foot were acquired. COMPARISON: None FINDINGS: Bones: Acute slightly comminuted transverse fracture through a/proximal shaft of fifth metatarsal bon e is seen without significant displacement or angulation. Moderate hallux valgus is seen. No other fr acture or dislocation is seen. Osteophytic changes are noted throughout midfoot and forefoot joints. No suspicious bony lesions. Soft tissues: No tibiotalar joint effusion. Achilles tendon appears normal. IMPRESSION: Slightly comminuted and nondisplaced fifth metatarsal base/proximal shaft fracture. No other fracture or dislocation. Midfoot and forefoot joint osteoarthritis. Moderate hallux valgus. Reviewed by: Pérez Meza MD on 02/12/2021 3:18 PM PDT Approved by: Pérez Meza MD on 02/12/2021 3:18 PM PDT Station ID: [id number]
== END 2021-02-12 13:35 | disposition home or self-care (01) ==
LOC: DI 13:34
PROVIDERS: ATTEND Podiatrist
DX: S92.355A Nondisplaced fracture of fifth metatarsal bone, left foot, initial encounter for closed fracture (principal)

== ENCOUNTER 2021-03-04 13:26 | Outpatient (CLI) | payer MEDICARE, OTHER ==
--- NOTE | 2021-03-04 14:29 | XRAY Report ---
PROCEDURE: Foot 3 View LT INDICATIONS: FX OF 5TH METATARSAL TECHNIQUE: 3 views of the foot were acquired. COMPARISON: 02/12/2021. FINDINGS: Bones: There is a subacute appearing mildly displaced fracture of the proximal fifth metatarsal witho ut evidence of surrounding callus. No suspicious bony lesions. Soft tissues: No tibiotalar joint effusion. Achilles tendon appears normal. IMPRESSION: Mildly displaced proximal fifth metatarsal fracture. Reviewed by: Richard Cota MD on 03/04/2021 2:28 PM PDT Approved by: Richard Cota MD on 03/04/2021 2:28 PM PDT Station ID: [id number]
== END 2021-03-04 13:27 | disposition home or self-care (01) ==
LOC: DI 13:26
PROVIDERS: ATTEND Podiatrist
DX: S92.352A Displaced fracture of fifth metatarsal bone, left foot, initial encounter for closed fracture (principal)

== ENCOUNTER 2021-03-18 16:43 | Outpatient (CLI) | payer MEDICARE, OTHER ==
--- NOTE | 2021-03-19 10:44 | XRAY Report ---
PROCEDURE: Foot 3 View LT INDICATIONS: FRACTURE 5TH MT OG LEFT FOOT TECHNIQUE: 3 views of the foot were acquired. COMPARISON: 03/04/2021 and 02/12/2021 FINDINGS: Bones: Nondisplaced transverse oblique fifth metatarsal metaphyseal fracture is again noted and there is trace bridging callus along the dorsal medial aspect. The fracture plane is still well seen. No n ew fractures. There is mild hallux valgus primus varus. Otherwise normal bone alignment. Degeneration at the fifth TMT joint. No suspicious bony lesions. Soft tissues: No tibiotalar joint effusion. Achilles tendon appears normal. IMPRESSION: 1. Subacute fifth metatarsal base fracture without significant healing change. Reviewed by: Kim Sharif MD on 03/19/2021 10:42 AM PDT Approved by: Kim Sharif MD on 03/19/2021 10:42 AM PDT Station ID: [id number]
== END 2021-03-18 16:44 | disposition home or self-care (01) ==
LOC: DI 16:43
PROVIDERS: ATTEND Podiatrist
DX: S92.355G Nondisplaced fracture of fifth metatarsal bone, left foot, subsequent encounter for fracture with delayed healing (principal)

== ENCOUNTER 2021-03-22 17:27 | Outpatient (CLI) | payer MEDICARE, OTHER ==
--- NOTE | 2021-03-22 19:45 | XRAY Report ---
PROCEDURE: Hand 3 View LT INDICATIONS: CRUSHING IN JURY OF LEFT HAND TECHNIQUE: 3 views of the hand(s) acquired. COMPARISON: None FINDINGS: Bones: There is a minimally displaced fracture involving the dorsal base of the left third finger di stal phalanx. There is moderate overlying soft tissue swelling centered at the third finger distal in terphalangeal joint. There is advanced background degenerative changes involving the distal interphal angeal joints of the second through fifth fingers as well as the interphalangeal joint of the left. S evere degenerative changes involving the first carpometacarpal joint and triscaphe joint. No dislocat ions. No suspicious bony lesions. Soft tissues: No suspicious soft tissue calcifications. IMPRESSION: Minimally displaced fracture involving the dorsal base of the left third finger distal phalanx. Advanced background polyarticular osteoarthritic changes of the left hand as described above. Reviewed by: Yusuf Dill MD on 03/22/2021 7:43 PM PDT Approved by: Yusuf Dill MD on 03/22/2021 7:43 PM PDT Station ID: [id number]
== END 2021-03-22 23:59 | disposition home or self-care (01) ==
LOC: DI.S 17:27
PROVIDERS: ATTEND Family Medicine
DX: S62.633A Displaced fracture of distal phalanx of left middle finger, initial encounter for closed fracture (principal); M19.042 Primary osteoarthritis, left hand

== ENCOUNTER 2021-04-08 13:08 | Outpatient (CLI) | payer MEDICARE, OTHER ==
--- NOTE | 2021-04-08 14:52 | XRAY Report ---
PROCEDURE: Foot 3 View LT INDICATIONS: 5TH MT FRACTURE TECHNIQUE: 3 views of the foot were acquired. COMPARISON: 03/18/2021, 03/04/2021. FINDINGS: Bones: There is interval some healing at patient's known fifth metatarsal base fracture site. Moderat e hallux valgus is again seen. Midfoot and forefoot joint osteoarthritic changes are again noted. No new fracture or dislocation. No suspicious bony lesions. Soft tissues: No tibiotalar joint effusion. Achilles tendon appears normal. IMPRESSION: Healing fifth metatarsal base fracture with stable right foot alignment. No new fracture or dislocati on. Reviewed by: Pérez Meza MD on 04/08/2021 2:50 PM PDT Approved by: Pérez Meza MD on 04/08/2021 2:50 PM PDT Station ID: [id number]
== END 2021-04-08 13:09 | disposition home or self-care (01) ==
LOC: DI 13:08
PROVIDERS: ATTEND Podiatrist
DX: S92.355D Nondisplaced fracture of fifth metatarsal bone, left foot, subsequent encounter for fracture with routine healing (principal)

== ENCOUNTER 2021-05-07 15:47 | Outpatient (CLI) | payer MEDICARE, OTHER ==
--- NOTE | 2021-05-07 16:58 | XRAY Report ---
PROCEDURE: Foot 3 View LT INDICATIONS: 5TH METATARSAL FRACTURE OF LEFT FOOT TECHNIQUE: 3 views of the foot were acquired. COMPARISON: 04/08/2021 FINDINGS: Bones: Interval progress in healing of a base of fifth metatarsal fracture. Fracture lines are less w ell visualized. Again noted is hallux valgus and bunion. Soft tissues: No tibiotalar joint effusion. Achilles tendon appears normal. IMPRESSION: Expected interval progress in healing of a base of fifth metatarsal fracture. Reviewed by: Oral Cortez MD on 05/07/2021 4:56 PM PDT Approved by: Oral Cortez MD on 05/07/2021 4:56 PM PDT Station ID: [id number]
== END 2021-05-07 15:48 | disposition home or self-care (01) ==
LOC: DI 15:47
PROVIDERS: ATTEND Podiatrist
DX: S92.355D Nondisplaced fracture of fifth metatarsal bone, left foot, subsequent encounter for fracture with routine healing (principal)

== ENCOUNTER 2021-06-09 17:29 | Outpatient (CLI) | payer MEDICARE, OTHER ==
--- NOTE | 2021-06-09 18:07 | XRAY Report ---
PROCEDURE: Foot 3 View LT INDICATIONS: 5TH METATARSAL FX LEFT FOOT TECHNIQUE: 3 views of the foot were acquired. COMPARISON: Several priors, including 05/07/2021, 04/08/2021, 03/18/2021. FINDINGS: Bones: There is a comminuted, moderately displaced fracture involving the proximal fifth metatarsal. This fracture demonstrates minimal remodeling change since the prior. No new fracture is seen. A mild to moderate hallux valgus deformity is seen, with associated degenera tive change of the first metatarsophalangeal joint. Incidental note is made of an accessory ossicle, an os peroneum. Soft tissues: No tibiotalar joint effusion. Achilles tendon appears normal. IMPRESSION: Poorly healing proximal fifth metatarsal fracture, with minimal change since the prior. Mild to moderate hallux valgus deformity, with associated degenerative changes. Reviewed by: Mandeep Julian MD on 06/09/2021 5:06 PM [facility] Approved by: Mandeep Julian MD on 06/09/2021 5:06 PM [facility] Station ID: [id number]
== END 2021-06-09 17:30 | disposition home or self-care (01) ==
LOC: DI 17:29
PROVIDERS: ATTEND Podiatrist
DX: S92.352G Displaced fracture of fifth metatarsal bone, left foot, subsequent encounter for fracture with delayed healing (principal); M20.12 Hallux valgus (acquired), left foot

== ENCOUNTER 2021-07-25 16:11 | Outpatient (CLI) | payer MEDICARE, OTHER ==
--- NOTE | 2021-07-25 17:28 | XRAY Report ---
PROCEDURE: Foot 3 View LT INDICATIONS: LEFT FOOT PAIN TECHNIQUE: 3 views of the foot were acquired. COMPARISON: Left foot radiographs 06/09/2021, 03/04/2021.. FINDINGS: Bones: There is decreased conspicuity of the fifth metatarsal base fracture. No dislocations. Modera te hallux valgus deformity and bunion formation. No suspicious bony lesions. Soft tissues: No tibiotalar joint effusion. Achilles tendon appears normal. IMPRESSION: Ongoing healing of the fifth metatarsal fracture. Reviewed by: Osiel Celis MD on 07/25/2021 5:27 PM [facility] Approved by: Osiel Celis MD on 07/25/2021 5:27 PM [facility] Station ID: [id number]
== END 2021-07-25 16:12 | disposition home or self-care (01) ==
LOC: DI.S 16:11
PROVIDERS: ATTEND Podiatrist
DX: S92.355D Nondisplaced fracture of fifth metatarsal bone, left foot, subsequent encounter for fracture with routine healing (principal)

== ENCOUNTER 2021-10-01 09:46 | Outpatient (CLI) | payer MEDICARE, OTHER ==
[2021-10-01 15:04] LABS: BASOPHILS # (AUTO) 0.1 10^3/uL (0.0-0.1); BASOPHILS % (AUTO) 1.1 %; EOSINOPHILS # (AUTO) 0.3 10^3/uL (0.0-0.7); HCT - HEMATOCRIT 39.5 % (37.0-47.0); HGB - HEMOGLOBIN 13.1 g/dL (12.0-16.0); LYMPHOCYTES # (AUTO) 1.8 10^3/uL (1.5-3.5); LYMPHOCYTES % (AUTO) 32.4 %; MEAN CORPUSCULAR HEMOGLOBIN 29.6 pg (27.0-31.0); MEAN CORPUSCULAR HGB CONC 33.2 g/dL (32.0-36.0); MEAN CORPUSCULAR VOLUME 89.2 fL (81.0-99.0); MEAN PLATELET VOLUME 11.3 fL (7.9-10.8); MONOCYTES # (AUTO) 0.6 10^3/uL (0.0-1.0); MONOCYTES % (AUTO) 10.3 %; NEUTROPHILS # (AUTO) 2.8 10^3/uL (1.5-6.6); NEUTROPHILS % (AUTO) 50.8 %; PLT - PLATELET COUNT 227 10^3/uL (130-450); RED BLOOD COUNT 4.43 10^6/uL (4.20-5.40); RED CELL DISTRIBUTION WIDTH 13.4 % (12.0-15.0); WHITE BLOOD COUNT 5.6 x10^3/uL (4.8-10.8)
[2021-10-01 15:30] LABS: ALBUMIN/GLOBULIN RATIO 1.4 (1.0-2.2); ALKALINE PHOSPHATASE 63 IU/L (42-121); ALT ALANINE AMINOTRANSFERASE 16 IU/L (10-60); AST ASPARTATE AMINOTRANSFERASE 24 IU/L (10-42); BILIRUBIN,TOTAL 0.5 mg/dL (0.2-1.0); BUN - BLOOD UREA NITROGEN 17 mg/dL (6-20); CALCIUM 8.9 mg/dL (8.5-10.3); CARBON DIOXIDE - CO2 27 mmol/L (21-32); CHLORIDE 100 mmol/L (101-111); CHOL/HDL RATIO 2.7 (<4.4); CHOLESTEROL 192 mg/dL; CREATININE 0.8 mg/dL (0.4-1.0); GFR - MDRD 69 (>89); GLUCOSE 83 mg/dL (70-100); HDL CHOLESTEROL 72 mg/dL; LDL CHOLESTEROL,CALCULATED 105 mg/dL; LDL/HDL RATIO 1.5 (<4.4); POTASSIUM 3.9 mmol/L (3.5-5.0); SODIUM 136 mmol/L (135-145); TOTAL PROTEIN 6.8 g/dL (6.7-8.2); TRIGLYCERIDES 76 mg/dL; VLDL CHOLESTEROL 15 mg/dL
[2021-10-01 15:36] LABS: THYROID STIMULATING HORMONE 3.52 uIU/mL (0.34-5.60)
== END 2021-10-01 09:47 | disposition home or self-care (01) ==
LOC: LAB.S 09:46
PROVIDERS: ATTEND Family Medicine
DX: E03.9 Hypothyroidism, unspecified (principal); F43.29 Adjustment disorder with other symptoms; G64 Other disorders of peripheral nervous system; K21.9 Gastro-esophageal reflux disease without esophagitis; E78.5 Hyperlipidemia, unspecified; E55.9 Vitamin D deficiency, unspecified; F41.9 Anxiety disorder, unspecified
CPT/HCPCS: 36415; 80053; 80061; 83721; 84443; 85025

== ENCOUNTER 2021-10-04 08:31 | Emergency (ER) | payer MEDICARE, OTHER ==
--- NOTE | 2021-10-04 09:10 | ED Physician Documentation ---
PD HPI OPHTHO - Stated complaint Stated Complaint: EYE PX/GOOPY - Chief complaint Chief Complaint: Heent - History obtained from History obtained from: Patient - History of Present Illness Timing - onset: Enter time (1500), Yesterday Timing - duration: Days (1) Timing - details: Gradual onset, Still present Location: Both Quality / character: Itching, Throbbing Associated symptoms: Redness, Swelling, Tearing, Discharge, Matting. No: FB sensation, Photophobia, Double vision, Decreased vision, Loss of vision, Headache Contributing factors: No: Recent URI Similar symptoms before: Diagnosis (conjunctivitis) Recently seen: Not recently seen - Additional information Additional information: Previously well 76-year-old female went to visit a patient in assisted living yesterday and when she was there she began to develop some irritation to her eyes. She developed some watering and some redness when she got home she recognized that there was some swelling to her face as well and this is worse this morning. She has swelling and redness to the left cheek and a bit of redness to both eyelids with mild swelling drainage from the conjunctive a angel aterally worse on the left than the right and no visual changes. No foreign body sensation. She does not know of anybody that she has become in contact with that that has conjunctivitis. The person she was visiting yesterday does not have conjunctivitis. Review of Systems Constitutional: denies: Fever Eyes: reports: Discharge, Irritation. denies: Loss of vision, Decreased vision, Photophobia Ears: denies: Ear pain Nose: denies: Rhinorrhea / runny nose, Congestion Throat: denies: Sore throat Respiratory: denies: Cough GI: denies: Vomiting PD PAST MEDICAL HISTORY - Past Medical History Cardiovascular: None Respiratory: None Endocrine/Autoimmune: HyPOthyroidism GI: GERD : None HEENT: None Psych: Depression, Anxiety Musculoskeletal: None Derm: None - Past Surgical History General: Other Ortho: Other /MANAGER DENTAL: Hysterectomy Neuro: Other HEENT: Tonsil/Adenoidectomy, Other - Present Medications Home Medications: Ambulatory Orders Medication Instructions Recorded Confirmed ALPRAZolam [Xanax] 0.5 mg PO QPM 02/20/16 09/28/17 Estropipate 0.375 mg PO QDBREAKFAST 02/20/16 09/28/17 Levothyroxine [Synthroid] 50 mcg PO DAILY 02/20/16 09/28/17 Lovastatin 10 mg PO QPM 02/20/16 09/28/17 Nortriptyline [Pamelor] 20 mg PO QPM 02/20/16 09/25/17 Biotin 5,000 mcg PO DAILY 03/04/16 09/28/17 Cholecalciferol [Vitamin D3] 5,000 unit PO DAILY 03/04/16 09/28/17 Multivitamin [Theragran] 1 tab PO DAILY 03/04/16 09/28/17 Vitamin B Complex/Folic Acid 0.4 mg PO DAILY 03/04/16 09/28/17 [Vitamin B-100 Complex Tablet] buPROPion HCL [Bupropion HCl Sr] 150 mg PO DAILY 03/05/16 09/28/17 Aspirin [Aspirin EC] 81 mg PO QPM 09/25/17 09/28/17 Fluticasone [Flonase] 1 sprays IDALIA DAILY 09/25/17 09/25/17 Lutein/Zeaxanthin [Ocuvite Lutein 1 each PO DAILY 09/25/17 09/28/17 25-5 mg Softgel] Amox/Clav 875/125 [Augmentin] 1 each PO Q12H #14 tablet 10/04/21 Neomycin/Poly/Dex Ophth Drops 1 drops EACHEYE QID #5 ml 10/04/21 [Maxitrol Ophth Drops] - Allergies Allergies/Adverse Reactions: Allergies Allergy/AdvReac Type Severity Reaction Status Date / Time morphine AdvReac Severe Emesis Verified 10/04/21 08:43 acetaminophen [From Lortab] AdvReac Headache Verified 10/04/21 08:43 codeine AdvReac Rash Verified 10/04/21 08:43 hydrocodone bitartrate * AdvReac Headache Verified 10/04/21 08:43 [From Lortab] Penicillins AdvReac Rash Verified 10/04/21 08:43 Sulfa (Sulfonamide AdvReac Unknown Verified 10/04/21 08:43 Antibiotics) - Social History Does the pt smoke?: No Smoking Status: Never smoker Does the pt drink ETOH?: No Does the pt have substance abuse?: No - Immunizations Immunizations are current?: Yes PD ED PE NORMAL - Vitals Vital signs reviewed: Yes (hypretensiv mild ) - General General: Alert and oriented X 3, No acute distress, Well developed/nourished - HEENT HEENT: Atraumatic, PERRL, EOMI, Other (There is scleral injection bilaterally with conjunctival erythema and may be some cobblestoning appearance to the inferior conjunctival sac. There is erythema to the soft tissues but is blanching especially on the left cheek this is consistent with acute cellulitis, in appearance.) - Neck Neck: Supple, no meningeal sign, No bony TTP - Cardiac Cardiac: RRR, No murmur - Respiratory Respiratory: No respiratory distress, Clear bilaterally - Abdomen Abdomen: Soft, Non tender - Derm Derm: Normal color, Warm and dry, No rash - Extremities Extremities: No deformity, No edema - Neuro Neuro: Alert and oriented X 3, outreach consultant 2-12 intact, No motor deficit, No sensory deficit, Normal speech Eye Opening: Spontaneous Motor: Obeys Commands Verbal: Oriented GCS Score: 15 - Psych Psych: Normal mood, Normal affect Results - Vitals Vitals: Vital Signs - 24 hr 10/04/21 10/04/21 08:41 09:26 Temperature 36 C L Heart Rate 94 88 Respiratory 16 18 Rate Blood Pressure 151/75 H 148/77 H O2 Saturation 99 100 Oxygen O2 Source Room air PD MEDICAL DECISION MAKING - ED course Complexity details: considered differential, d/w patient ED course: 76-year-old female who looks like she has acute conjunctivitis and some facial cellulitis that is come up over a 1 day period of time. We will place her on some Augmentin for the cellulitis and administer Maxitrol ophthalmic drops. She does have ophthalmology in [place] for follow-up. Patient admits to having an allergy to penicillin but knows that she can take amoxicillin prefers Augmentin over Keflex for dosing convenience. Departure - Departure Disposition: 01 Home, Self Care Clinical Impression: Conjunctivitis Qualifiers: Conjunctivitis type: acute Acute conjunctivitis type: bacterial Laterality: bilateral Qualified Code(s): H10.33 - Unspecified acute conjunctivitis, bilateral Cellulitis Qualifiers: Site of cellulitis: face Qualified Code(s): L03.211 - Cellulitis of face Condition: Stable Instructions: ED Cellulitis Facial, ED Conjunctivitis Bacterial Follow-Up: Malvin Wong MD [Provider Admit Priv/Credential] - Prescriptions: Amox/Clav 875/125 [Augmentin] 1 each PO Q12H #14 tablet Neomycin/Poly/Dex Ophth Drops [Maxitrol Ophth Drops] 1 drops EACHEYE QID #5 ml Comments: Valentine, today looks like you have a bacterial conjunctivitis that has led to some cellulitis in your cheek as well. We will place you on some oral antibiotic Augmentin which will need to take twice per day. Use a warm compress to the face to increase blood supply to the area. In addition there are some eyedrops to be used 4 times per day.The expectation is improvement in the redness over the day today and if you have worsening of this despite starting this antibiotic this is a reason to return to the hospital. Follow-up with Dr. Wong in the next week and sooner if you are not improving. A culture of the left lower conjunctival sac has been obtained. Results of this will be available in 1 to 3 days.Medications have been E scribed to [facility] in [place]. Discharge Date/Time: 10/04/21 09:28
[2021-10-04 09:27] VITALS: BP 148/77
== END 2021-10-04 09:28 | disposition home or self-care (01) ==
LOC: ED 08:31
DX: L03.211 Cellulitis of face (principal); H10.33 Unspecified acute conjunctivitis, bilateral
CPT/HCPCS: 99282

== ENCOUNTER 2022-05-14 13:53 | Outpatient (CLI) | payer MEDICARE, OTHER ==
--- NOTE | 2022-05-15 12:53 | Mammography Report ---
BILATERAL DIGITAL SCREENING MAMMOGRAM 3D/2D: 05/14/2022 CLINICAL: Routine screening. Comparison is made to exams dated: 05/17/2018 mammogram, 11/21/2016 mammogram, 02/10/2014 mammogram, an d 01/27/2012 mammogram - [facility]. There are scattered areas of fibroglandular density in both breasts (category b / 25%-50% glandular t issue). No significant masses, calcifications, or other findings are seen in either breast. There has been no significant interval change. IMPRESSION: NEGATIVE There is no mammographic evidence of malignancy. A 1 year screening mammogram is recommended. Based on the Tyrer Cuzick model (a risk assessment model) the patients lifetime risk is 1.0% and her 10 year risk is 0.0%. According to the ACR, ACS, and NCCN guidelines, an annual breast MRI exam sandhya g with mammogram is recommended if the patients lifetime risk is 20% or greater. This exam was interpreted at Station ID: [id number]. NOTE: For mammograms, a report in lay terms will be sent to the patient. Approximately 15% of breast malignancies will not be visualized mammographically. In the management of a palpable breast mass, a negative mammogram must not discourage biopsy of a clinically suspicious lesion. Electronically Signed By: Daniel Stone M.D., jr/joseph:05/14/2022 15:27:04 ACR BI-RADS Category 1: Negative 3341F PARENCHYMAL PATTERN: (A) - The breast(s) demonstrate(s) scattered fibroglandular densities. BI-RADS CATEGORY: (1) - 1 RECOMMENDATION: (ANNUAL) - Recommend routine annual screening mammography. [id number] 1 year screening LATERALITY: (B)
== END 2022-05-14 13:54 | disposition home or self-care (01) ==
LOC: DI.S 13:53
PROVIDERS: ATTEND Physician Assistant
DX: Z12.31 Encounter for screening mammogram for malignant neoplasm of breast (principal)

== ENCOUNTER 2022-08-13 13:58 | Outpatient (CLI) | payer MEDICARE, OTHER ==
--- NOTE | 2022-08-13 14:17 | XRAY Report ---
PROCEDURE: Chest 2 View X-Ray INDICATIONS: AXILLARY LYMPHADENOPATHY TECHNIQUE: 2 views of the chest were acquired. COMPARISON: 03/07/2020 FINDINGS: Surgical changes and devices: None. Lungs and pleura: No pleural effusions or pneumothorax. Lungs are clear. Mediastinum: Mediastinal contours are normal. Heart size is normal. Bones and chest wall: No suspicious bony abnormalities. Soft tissues appear unremarkable. IMPRESSION: No evidence acute pulmonary process. Reviewed by: Oral Cortez MD on 08/13/2022 2:15 PM PST Approved by: Oral Cortez MD on 08/13/2022 2:15 PM PST Station ID: [id number]
== END 2022-08-13 13:59 | disposition home or self-care (01) ==
LOC: DI.S 13:58
PROVIDERS: ATTEND Emergency Medicine
DX: R59.0 Localized enlarged lymph nodes (principal)

== ENCOUNTER 2022-08-14 11:25 | Outpatient (CLI) | payer MEDICARE, OTHER ==
[2022-08-14 14:00] LABS: BASOPHILS # (AUTO) 0.1 10^3/uL (0.0-0.1); EOSINOPHILS # (AUTO) 0.2 10^3/uL (0.0-0.7); EOSINOPHILS % (AUTO) 3.5 %; HCT - HEMATOCRIT 42.1 % (37.0-47.0); HGB - HEMOGLOBIN 13.9 g/dL (12.0-16.0); LYMPHOCYTES # (AUTO) 2.1 10^3/uL (1.5-3.5); LYMPHOCYTES % (AUTO) 41.3 %; MEAN CORPUSCULAR HEMOGLOBIN 29.6 pg (27.0-31.0); MEAN CORPUSCULAR VOLUME 89.8 fL (81.0-99.0); MEAN PLATELET VOLUME 11.4 fL (7.9-10.8); MONOCYTES # (AUTO) 0.6 10^3/uL (0.0-1.0); MONOCYTES % (AUTO) 12.4 %; NEUTROPHILS # (AUTO) 2.2 10^3/uL (1.5-6.6); NEUTROPHILS % (AUTO) 41.8 %; PLT - PLATELET COUNT 239 10^3/uL (130-450); RED BLOOD COUNT 4.69 10^6/uL (4.20-5.40); WHITE BLOOD COUNT 5.2 x10^3/uL (4.8-10.8)
[2022-08-14 14:26] LABS: ALBUMIN 4.2 g/dL (3.2-5.5); ALBUMIN/GLOBULIN RATIO 1.4 (1.0-2.2); BILIRUBIN,TOTAL 0.5 mg/dL (0.2-1.0); CALCIUM 8.9 mg/dL (8.5-10.3); CREATININE 0.8 mg/dL (0.4-1.0); POTASSIUM 4.2 mmol/L (3.5-5.0); TOTAL PROTEIN 7.1 g/dL (6.7-8.2)
== END 2022-08-14 11:26 | disposition home or self-care (01) ==
LOC: LAB.S 11:25
PROVIDERS: ATTEND Emergency Medicine
DX: R59.0 Localized enlarged lymph nodes (principal)
CPT/HCPCS: 36415; 80053; 85025

== ENCOUNTER 2022-08-23 12:47 | Outpatient (CLI) | payer MEDICARE, OTHER ==
[2022-08-23] MEDS ORDERED: iohexoL-300 100 ML VIAL ONE (13:22)
--- NOTE | 2022-08-23 15:31 | CT Report ---
PROCEDURE: CT chest with contrast INDICATIONS: AXILLARY LYMPHADENOPATHY CONTRAST:100ml omni 300 TECHNIQUE: After the administration of intravenous contrast, 1 mm axial images were acquired from the pulmonary apices through the posterior costophrenic angles. Axial 5 mm soft tissue kernel reconstructions were performed as well as 8 mm axial MIP and coronal and sagittal 5 mm reformations. For radiation dose reduction, the following was used: automated exposure control, adjustment of mA and/or kV according to patient size. COMPARISON: None. FINDINGS: Image quality: Excellent. Lungs and pleura: No acute air space opacities. No pleural effusions or pneumothorax. Central and peripheral airways are patent and normal in caliber. Mediastinum: Heart size is normal. No pericardial effusion. No mediastinal or hilar adenopathy by size criteria. Thoracic aorta and central pulmonary arteries are normal in size. Esophagus is olya l in caliber. Small hiatal hernia. Bones and chest wall: No suspicious bony lesions. No vertebral body compression fractures. No axil sonal or supraclavicular adenopathy by size criteria. The thyroid is normal in size and there are no incidental findings.. Abdomen: Visualized upper abdominal solid organs appear normal. Upper abdominal bowel loops are nor mal in caliber. IMPRESSION: No evidence of axillary, mediastinal or hilar adenopathy. Small hiatal hernia Reviewed by: Tommy Rogers MD on 08/23/2022 2:30 PM [place] Approved by: Tommy oRgers MD on 08/23/2022 2:30 PM [place] Station ID: [id number]
[2022-08-23] MEDS ORDERED: iohexoL-300 100 ML VIAL IVP ONE (16:16)
== END 2022-08-23 12:48 | disposition home or self-care (01) ==
LOC: DI 12:47
PROVIDERS: ATTEND Emergency Medicine
DX: R59.0 Localized enlarged lymph nodes (principal); K44.9 Diaphragmatic hernia without obstruction or gangrene
CPT/HCPCS: 71260; Q9967

== ENCOUNTER 2023-06-03 09:36 | Outpatient (CLI) | payer MEDICARE, OTHER | END 2023-06-03 09:37 | disposition short-term general hospital (02) | LOC: EMS 09:36 | DX: R06.02 Shortness of breath (principal); R49.0 Dysphonia; R07.0 Pain in throat; R03.0 Elevated blood-pressure reading, without diagnosis of hypertension; T17.298A Other foreign object in pharynx causing other injury, initial encounter; W44.8XXA Other foreign body entering into or through a natural orifice, initial encounter | CPT/HCPCS: A0425; A0429 ==

== ENCOUNTER 2024-02-16 13:16 | Outpatient (CLI) | payer MEDICARE, OTHER ==
[2024-02-16 13:37] LABS: BASOPHILS # (AUTO) 0.1 10^3/uL (0.0-0.1); EOSINOPHILS # (AUTO) 0.1 10^3/uL (0.0-0.7); EOSINOPHILS % (AUTO) 2.3 %; HCT - HEMATOCRIT 41.9 % (37.0-47.0); LYMPHOCYTES # (AUTO) 1.9 10^3/uL (1.5-3.5); LYMPHOCYTES % (AUTO) 31.4 %; MEAN CORPUSCULAR HGB CONC 33.4 g/dL (32.0-36.0); MEAN CORPUSCULAR VOLUME 89.7 fL (81.0-99.0); MEAN PLATELET VOLUME 10.6 fL (7.9-10.8); MONOCYTES # (AUTO) 0.4 10^3/uL (0.0-1.0); NEUTROPHILS # (AUTO) 3.5 10^3/uL (1.5-6.6); NEUTROPHILS % (AUTO) 58.1 %; PLT - PLATELET COUNT 233 10^3/uL (130-450); RED BLOOD COUNT 4.67 10^6/uL (4.20-5.40)
[2024-02-16 14:07] LABS: ALBUMIN 4.5 g/dL (3.2-5.5); ALBUMIN/GLOBULIN RATIO 1.9 (1.0-2.2); ALKALINE PHOSPHATASE 64 IU/L (42-121); ALT ALANINE AMINOTRANSFERASE 13 IU/L (10-60); AST ASPARTATE AMINOTRANSFERASE 21 IU/L (10-42); BILIRUBIN,TOTAL 0.7 mg/dL (0.2-1.0); BUN - BLOOD UREA NITROGEN 9 mg/dL (6-20); CALCIUM 9.5 mg/dL (8.5-10.3); CARBON DIOXIDE - CO2 30 mmol/L (21-32); CHLORIDE 105 mmol/L (101-111); CHOL/HDL RATIO 2.9 (<4.4); CHOLESTEROL 188 mg/dL; CREATININE 0.7 mg/dL (0.6-1.3); GFR - MDRD 81 (>89); GLUCOSE 88 mg/dL (74-104); HDL CHOLESTEROL 65 mg/dL; LDL CHOLESTEROL,CALCULATED 94 mg/dL; LDL/HDL RATIO 1.4 (<4.4); POTASSIUM 3.9 mmol/L (3.5-4.5); SODIUM 140 mmol/L (135-145); TOTAL PROTEIN 6.9 g/dL (6.4-8.9); TRIGLYCERIDES 143 mg/dL; VLDL CHOLESTEROL 29 mg/dL
[2024-02-16 14:12] LABS: THYROID STIMULATING HORMONE 1.12 uIU/mL (0.34-5.60)
== END 2024-02-16 13:17 | disposition home or self-care (01) ==
LOC: LAB 13:16
PROVIDERS: ATTEND Family Medicine
DX: I73.00 Raynaud's syndrome without gangrene (principal); L82.1 Other seborrheic keratosis; M19.041 Primary osteoarthritis, right hand; M19.042 Primary osteoarthritis, left hand; J45.909 Unspecified asthma, uncomplicated; L65.9 Nonscarring hair loss, unspecified; K21.9 Gastro-esophageal reflux disease without esophagitis; G62.9 Polyneuropathy, unspecified; E55.9 Vitamin D deficiency, unspecified
CPT/HCPCS: 36415; 80053; 80061; 82306; 83721; 84443; 85025